=== PATIENT | male | born 1965 | race Caucasian/White ===

== ENCOUNTER 2017-01-03 20:53 | Emergency (ER) | payer OTHER ==
[~2017-01-03] VITALS: Ht 190.5 cm; Wt 86.2 kg
[~2017-01-03 20:53] MED LIST: CENTRUM COMPLE1 EACH PO; GINKGO BILOBA40 M1 PO; GINSENG100 MG PO; VITAMIN B122500 MCG PO; ZOLOFT50 MG PO
[2017-01-03] MEDS ORDERED: AMOX TR-K CLV1 EAC1 PO (21:10)
--- NOTE | 2017-01-05 08:17 | EKG ---
[facility] [address] [place] [place] [address] Signed Normal sinus rhythm with sinus arrhythmia Normal ECG No previous ECGs available Confirmed by BILLY HOROWITZ MD ([id number]) on 01/05/2017 8:17:15 AM Electronically Signed By: BILLY HOROWITZ MD 01/05/17 0817 PATIENT NAME: DEEPA CHAMBERLAIN PERRY Electrocardiogram DATE OF : 63 PHYSICIAN: BILLY HOROWITZ MD REPORT #: [id number] REPORT IS CONFIDENTIAL AND NOT TO BE RELEASED WITHOUT AUTHORIZATION
== END 2017-01-04 00:45 | disposition short-term general hospital (02) ==
LOC: ED 20:53
DX: I72.8 Aneurysm of other specified arteries (principal); Z79.899 Other long term (current) drug therapy
CPT/HCPCS: 71010; 71275; 72191; 80053; 81001; 83690; 84484; 85025; 93005; 93010; 96361; 96374; 96375; 99285; J1170; J2405; J7030; Q9967

== ENCOUNTER 2017-12-13 23:08 | Observation (INO) | payer OTHER ==
[~2017-12-13] VITALS: Ht 190.5 cm; Wt 83.1 kg
--- OUTSIDE RECORDS SUMMARY | ~2017-12-13 | XMS | Encounter Summary ---
Demographics + + + | Address | [address] | | | [place] [address] | + + + | Home Phone | | + + + | Preferred Language | Unknown | + + + | Marital Status | | + + + | Scientology Affiliation | CHR | + + + | Race | White | + + + | Ethnic Group | Not or | + + + Author + + + | Author | [facility] | + + + | Organization | [facility] | + + + | Address | Unknown | + + + | Phone | Unavailable | + + + Support + + +---------+ + | Name | Relationship | Address | Phone | + + +---------+ + | alejandrina garcia | ECON | Unknown | | + + +---------+ + Care Team Providers + +------+ + | Care Blower Installer Name | Role | Phone | + +------+ + | Donato Ahmadi DO | PCP | | + +------+ + Reason for Referral Diagnostic Testing (Routine) + +--------+ + + + + | Status | Reason | Specialty | Diagnoses / | Referred By | Referred To | | | | | Procedures | Contact | Contact | + +--------+ + + + + | New Request | | Radiology | Diagnoses | Zeferino | | | | | | Celiac | Marixa Carcamo MD | | | | | | artery | [address] | | | | | | aneurysm | [address] | | | | | | ([facility]) | [address] | | | | | | Procedures | [place], [place] | | | | | | [facility] | [address] | | | | | | MESENTERIC & | Phone: | | | | | | CELIAC | [phone] | | | | | | DUPLEX | Fax: | | | | | | | [phone] | | + +--------+ + + + + Diagnostic Testing (Routine) + +--------+ + + + + | Status | Reason | Specialty | Diagnoses / | Referred By | Referred To | | | | | Procedures | Contact | Contact | + +--------+ + + + + | New Request | | Radiology | Diagnoses | Zeferino | | | | | | Celiac | Marixa Carcamo MD | | | | | | artery | [address] | | | | | | aneurysm | [address] | | | | | | ([facility]) | [address] | | | | | | Procedures | [place], [place] | | | | | | [facility] | [address] | | | | | | MESENTERIC & | Phone: | | | | | | CELIAC | [phone] | | | | | | DUPLEX | Fax: | | | | | | | [phone] | | + +--------+ + + + + Reason for Visit Diagnostic Testing (Routine) + +--------+ + + + + | Status | Reason | Specialty | Diagnoses / | Referred By | Referred To | | | | | Procedures | Contact | Contact | + +--------+ + + + + | New Request | | Radiology | Diagnoses | Zeferino, | | | | | | Celiac | Marixa Carcamo MD | | | | | | artery | [address] | | | | | | aneurysm | [address] | | | | | | ([facility]) | [address] | | | | | | Procedures | [place], [place] | | | | | | [facility] | [address] | | | | | | MESENTERIC & | Phone: | | | | | | CELIAC | [phone] | | | | | | DUPLEX | Fax: | | | | | | | [phone] | | + +--------+ + + + + Encounter Details +--------+ + + + + | Date | Type | Department | Care Team | Description | +--------+ + + + + | 09/29/ | Hospital | Diagnostic Imaging | Toni Smith, | | | 2017 | Encounter | Services at [facility] | [address] | | | | | [address] | [address] | | | | | [place], | [place], [place] | | | | | [place] [address] | [address] | | | | | [phone] | [phone] | | | | | | | | +--------+ + + + + Social History + +-------+ +--------+------+ | Tobacco Use | Types | Packs/Day | Years | Date | | | | | Used | | + +-------+ +--------+------+ | Never Smoker | | | | | + +-------+ +--------+------+ + +---+---+---+ | Smokeless Tobacco: | | | | | Never Used | | | | + +---+---+---+ + + +---------+ + | Alcohol Use | Drinks/We | oz/Week | Comments | | | ek | | | + + +---------+ + | Yes | | | rare | + + +---------+ + + + + | Sex Assigned at | Date Recorded | | | | + + + | Not on file | | + + + as of this encounter Functional Status + + + + | Functional Status | Response | Date of Assessment | + + + + | Because of a physical, mental, or emotional | No | 01/04/2017 | | condition, do you have serious difficulty | | | | doing errands alone such as visiting the | | | | doctor? | | | + + + + + + + + | Cognitive Status | Response | Date of Assessment | + + + + | Because of a physical, mental, or emotional | No | 01/04/2017 | | condition, do you have serious difficulty | | | | concentrating, remembering, or making | | | | decisions? (5 years old or older) | | | + + + + as of this encounter Medications at Time of Discharge + + +--------+---------+ + + | Medication | Sig. | Disp. | Refills | Start | End Date | | | | | | Date | | + + +--------+---------+ + + | aspirin EC 81 mg | Take 1 tablet by | | | 01/11/20 | | | oral tablet,delayed | mouth once daily. | | | 17 | | | release (DR/EC) | | | | | | + + +--------+---------+ + + | atorvastatin 10 mg | Take 1 tablet by | 30 | 2 | 01/11/20 | | | oral tablet | mouth once daily. | tablet | | 17 | | + + +--------+---------+ + + | doxepin HCl | Take by mouth once | | | | | | (DOXEPIN ORAL) | daily at bedtime. | | | | | + + +--------+---------+ + + | metoprolol | Take 1 tablet by | 30 | 0 | 01/11/20 | | | succinate 25 mg oral | mouth once daily. | tablet | | 17 | | | tablet extended | | | | | | | release 24 hr | | | | | | + + +--------+---------+ + + | mometasone 0.1 % | Apply to affected | | | | | | topical cream | area two times | | | | | | | daily. Apply a thin | | | | | | | film to affected | | | | | | | area. | | | | | + + +--------+---------+ + + as of this encounter Plan of Treatment +--------+ + + + + | Date | Type | Specialty | Care Team | Description | +--------+ + + + + | 03/09/ | Appointment | Radiology | Jan Enriquez MD | | | 2018 | | | [address] | | | | | | [place], | | | | | | [place] [address] | | | | | | [phone] | | | | | | | | +--------+ + + + + | 03/09/ | Office | Vascular Surgery | Jan Enriquez MD | | | 2018 | Visit | | [address] | | | | | | [place], | | | | | | [place] [address] | | | | | | [phone] | | | | | | | | +--------+ + + + + as of this encounter Procedures + +--------+ + + + | Procedure Name | Priori | Date/Time | Associated Diagnosis | Comments | | | ty | | | | + +--------+ + + + | [facility]ASC LAB MESENTERIC | Routin | 09/29/2017 | Celiac artery | Results for this | | & CELIAC DUPLEX | e | 9:27 AM | aneurysm (HCC) | procedure are in the | | | | PDT | | results section. | + +--------+ + + + in this encounter Results [facility] MESENTERIC & CELIAC DUPLEX (09/29/2017 9:27 AM) + + + | Narrative | Performed At | + + + | Visceral: The duplex scanner was used to examine the aorta, celiac, | [facility] | | superior mesenteric, and inferior mesenteric arteries. The aorta has | RADIOLOGY [facility]ASC | | a flow velocity of 110 cm/s. The celiac artery has a flow velocity | [place] | | of 225 cm/s. There are flow velocities of 143 and 110 cm/s in the | | | splenic and hepatic arteries respectively. The celiac diameter is 1.3 | | | cm X 1.3 cm X 1.3 cm with a dissection flap in the celiac trunk. The | | | superior mesenteric artery has a flow velocity of 135 cm/s proximally, | | | 218 cm/s in mid artery and 103 cm/s distally. ?? The inferior | | | mesenteric artery has a peak flow velocity of 98 cm/s. | | | Conclusions: An abnormal examination. 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 A previously visualized dissection | | | flap in the splenic artery on an examination from 03/22/17 was not | | | visualized on today's examination. The superior mesenteric and | | | inferior mesenteric arteries are patent without significant stenosis. | | | I have personally reviewed the images and, if necessary, | | | edited the report. I agree with the report as now presented. | | + + + + + | Procedure Note | + + | Service Account, Gracie Res In Interface - 09/29/2017 2:18 PM PDT Visceral: The | | duplex scanner was used to examine the aorta, celiac, superior mesenteric, and inferior | | mesenteric arteries.The aorta has a flow velocity of 110 cm/s. The celiac artery has a | | flow velocity of 225 cm/s. There are flow velocities of 143 and 110 cm/s in the splenic | | and hepatic arteries respectively. The celiac diameter is 1.3 cm X 1.3 cm X 1.3 cm with | | a dissection flap in the celiac trunk.The superior mesenteric artery has a flow velocity | | of 135 cm/s proximally, 218 cm/s in mid artery and 103 cm/s distally. ??The inferior | | mesenteric artery has a peak flow velocity of 98 cm/s.Conclusions: An abnormal | | examination.There is 70-99% stenosis in the celiac artery with a dissection flap in the | | celiac artery and a celiac artery diameter of 1.3 cm. A previously visualized dissection | | flap in the splenic artery on an examination from 03/22/17 was not visualized on | | today's examination.The superior mesenteric and inferior mesenteric arteries are patent | | without significant stenosis.I have personally reviewed the images and, if necessary, | | edited the report. I agree with the report as now presented. | | | |I have personally reviewed the images and, if necessary, edited the report. I agree with t he report as now presented. | + + + +---------+ + + | Performing | Address | City/State/Zipcode | Phone Number | | Organization | | | | + +---------+ + + | [facility] | | | | | [facility] | | | | + +---------+ + + in this encounter Visit Diagnoses + + | Diagnosis | + + | Celiac artery aneurysm (HCC) | + + | Aneurysm of other visceral artery | + +"
--- OUTSIDE RECORDS SUMMARY | ~2017-12-13 | XMS | Clinical Summary ---
Demographics + + + | Address | [address] | | | [place] [address] | + + + | Home Phone | | + + + | Preferred Language | Unknown | + + + | Marital Status | | + + + | Lutheran Affiliation | 1013 | + + + | Race | Unknown | + + + | Ethnic Group | Unknown | + + + Author + + + | Author | [facility] | + + + | Organization | [facility] | + + + | Address | Unknown | + + + | Phone | Unavailable | + + + Support + + +---------+ + | Name | Relationship | Address | Phone | + + +---------+ + | Vicki Garcia | ECON | Unknown | | + + +---------+ + Care Team Providers + +------+ + | Care Black Leather Buffer Name | Role | Phone | + +------+ + | Donato Ahmadi DO | PP | | + +------+ + Allergies Not on File Current Medications Not on file Active Problems Not on file Social History + +-------+ +--------+------+ | Tobacco Use | Types | Packs/Day | Years | Date | | | | | Used | | + +-------+ +--------+------+ | Never Assessed | | | | | + +-------+ +--------+------+ + + + | Sex Assigned at | Date Recorded | | | | + + + | Not on file | | + + + Plan of Treatment Not on file Results Not on filefrom Last 3 Months Insurance + +--------+ +------+-------+---------+ | Payer | Benefi | Subscriber | Type | Phone | Address | | | t Plan | ID | | | | | | / | | | | | | | Group | | | | | + +--------+ +------+-------+---------+ | [employer] | [employer] | [id number] | | | | | | WORK | | | | | + +--------+ +------+-------+---------+ | [employer] | [employer] | [id number] | | | | | | WORK | | | | | + +--------+ +------+-------+---------+ + +--------+ +--------+ + + | Guarantor Name | Accoun | Relation to | Date | Phone | Billing Address | | | t Type | Patient | of | | | | | | | | | | + +--------+ +--------+ + + | DEEPA GARCIA | Person | Self | [birth year] | Home: | [address] | | | al/[place] | | 1965 | [phone] [place] [address] | | | sue | | | [phone] | | + +--------+ +--------+ + +"
--- OUTSIDE RECORDS SUMMARY | ~2017-12-13 | XMS | Clinical Summary ---
Demographics + + + | Address | [address] | | | [place] [address] | + + + | Home Phone | | + + + | Preferred Language | Unknown | + + + | Marital Status | | + + + | Lutheran Affiliation | 1013 | + + + | Race | Unknown | + + + | Ethnic Group | Unknown | + + + Author + + + | Author | [facility] | + + + | Organization | [facility] | + + + | Address | Unknown | + + + | Phone | Unavailable | + + + Support + + +---------+ + | Name | Relationship | Address | Phone | + + +---------+ + | Vicki Garcia | ECON | Unknown | | + + +---------+ + Care Team Providers + +------+ + | Care Pulp And Paper Tester Name | Role | Phone | + [...] +------+-------+---------+ | [employer] | [employer] | [id number] | | | | | | WORK | | | | | + +--------+ +------+-------+---------+ | [employer] | [employer] | [id number] | | | | | | WORK [...] Self | [birth year] | Home: | [address] | | | al/[place] | | 1965 | [phone] | [place] [address] | | | sue | | | [phone] | | + +--------+ +--------+ + +"
--- OUTSIDE RECORDS SUMMARY | ~2017-12-13 | XMS | Clinical Summary ---
Demographics + + + | Address | [address] | | | [place] [address] | + + + | Home Phone | | + + + | Preferred Language | Unknown | + + + | Marital Status | | + + + | Congregational Affiliation | 1013 | + + + | Race | Unknown | + + + | Ethnic Group | Unknown | + + + Author + + + | Author | [facility] | | | and [place] | + + + | Organization | [facility] | | | and [place] | + + + | Address | Unknown | + + + | Phone | Unavailable | + + + Support + + +---------+ + | Name | Relationship | Address | Phone | + + +---------+ + | Jeremie Garcia | ECON | Unknown | | + + +---------+ + Care Team Providers + +------+ + | Care School Librarian Name | Role | Phone | + +------+ + | Donato Ahmadi DO | PP | | + +------+ + Allergies No Known Allergies Current Medications No known medications Active Problems + + + | Problem | Noted Date | + + + | PALPITATIONS | | + + + Family History + + +------+ + | Medical History | Relation | Name | Comments | + + +------+ + | Arthritis | Father | | | + + +------+ + | Arthritis | Mother | | | + + +------+ + | Cancer | Mother | | | + + +------+ + + +------+ + + | Relation | Name | Status | Comments | + +------+ + + | Father | | Alive | | + +------+ + + | Maternal Aunt | | | Suicide | | | | (Age | | | | | 65) | | + +------+ + + | Maternal Grandfather | | | Cancer | | | | (Age | | | | | 87) | | + +------+ + + | Maternal Grandmother | | | Cancer | | | | (Age | | | | | 71) | | + +------+ + + | Mother | | Alive | | + +------+ + + | Paternal Grandmother | | | Cancer Gallbladder | | | | (Age | | | | | 80) | | + +------+ + + | Sister | | Alive | | + +------+ + + Social History + +-------+ +--------+------+ [...] + + +---------+ + | Yes | 0 | 0.0 | ocasional | | | Standard | | | | | drinks or | | | | | | | | | | equivalen | | | | | t | | | + + +---------+ + + + + | Sex Assigned at | Date Recorded | | | | + + + | Not on file | | + + + Last Filed Vital Signs + + + + | Vital Sign | Reading | Time Taken | + + + + | Blood Pressure | 117/73 | 03/20/2015 1505 PST | + + + + | Pulse | 59 | 03/20/2015 1505 PST | + + + + | Temperature | 36.7 C (98 F) | 07/03/2016 1302 PDT | + + + + | Respiratory Rate | 18 | 03/20/2015 1505 PST | + + + + | Oxygen Saturation | - | - | + + + + | Inhaled Oxygen | - | - | | Concentration | | | + + + + | Weight | 88.5 kg (195 lb) | 07/03/20161301 PDT | + + + + | Height | 188 cm (6' 2") | 07/03/20161301 PDT | + + + + | Body Mass Index | 25.04 | 07/03/20161301 PDT | + + + + Plan of Treatment + + + + + | Health Maintenance | Due Date | Last Done | Comments | + + + + + | Hepatitis C | | | | | Screening | 4 | | | + + + + + | Vaccine: | | | | | Dtap/Tdap/Td (1 - | 3 | | | | Tdap) | | | | + + + + + | Colorectal Cancer | | | | | Screening | 4 | | | | (Colonoscopy) | | | | + + + + + | Vaccine: Influenza | | | | | (#1) | 8 | | | + + + + + Results Not on filefrom Last 3 Months Insurance + +--------+ +------+ +---------+ | Payer | Benefi | Subscriber | Type | Phone | Address | | | t Plan | ID | | | | | | / | | | | | | | Group | | | | | + +--------+ +------+ +---------+ | [facility] | PHP | [id number] | PPO | [phone] | | PLAN | [place] | | | [phone] | | | [address] | | | | | | | [place] | | | | | + +--------+ +------+ +---------+ | [facility] | PHP | [id number] | PPO | [phone] | | PLAN | [place] | | | [phone] | | | | [address] | | | | | | | [place] | | | | | + +--------+ +------+ +---------+ + +--------+ +--------+ + + | Guarantor Name | Accoun | Relation to | Date | Phone | Billing Address | | | t Type | Patient | of | | | | | | | | | | + +--------+ +--------+ + + | DEEPA GARCIA | Person | Self | [birth year] | Home: | [address] | | | al/Fam | | 1965 | [phone] [place] [address] | | | sue | | | [address] | | + +--------+ +--------+ + +
--- OUTSIDE RECORDS SUMMARY | ~2017-12-13 | XMS | Encounter Summary ---
Demographics + + + | Address | [address] | | | [place] [address] | + + + | Home Phone | | + + + | Preferred Language | Unknown | + + + | Marital Status | | + + + | Baptist Affiliation | CHR | + + + | Race | White | + + + | Ethnic Group | Not or | + + + Author + + + | Author | [facility] | + + + | Organization | [facility] | + + + | Address | Unknown | + + + | Phone | Unavailable | + + + Support + + +---------+ + | Name | Relationship | Address | Phone | + + +---------+ + | alejandrina garcia | ECON | Unknown | | + + +---------+ + Care Team Providers + +------+ + | Care Mixed Animal Veterinarian Name | Role | Phone | + [...] [address] | | | | | | ([facility]) | [address] | | | | | | Procedures | [place], [place] | | | | | | [facility] | [address] | | | | | | MESENTERIC & | Phone: | | | | | | CELIAC | [phone] | | | | | | DUPLEX | Fax: | | | | | | | [phone] | | + +--------+ + + + [...] [address] | | | | | | ([facility]) | [address] | | | | | | Procedures | [place], [place] | | | | | | [facility] | [address] | | | | | | MESENTERIC & | Phone: | | | | | | CELIAC | [phone] | | | | | | DUPLEX | Fax: | | | | | | | [phone] | | + +--------+ + + + [...] [address] | | | | | | ([facility]) | [address] | | | | | | Procedures | [place], [place] | | | | | | [facility] | [address] | | | | | | MESENTERIC & | Phone: | | | | | | CELIAC | [phone] | | | | | | DUPLEX | Fax: | | | | | | | [phone] | | + +--------+ + + + + Encounter Details +--------+ + + + + | Date | Type | Department | Care Team | Description | +--------+ + + + + | 09/29/ | Hospital | Diagnostic Imaging | Toni Smith, | | | 2017 | Encounter | Services at [facility] | [address] | | | | | [address] | [address] | | | | | [place], | [place], [place] | | | | | [place] [address] | [address] | | | | | [phone] | [phone] | | | | | | | [...] | | | | | | [place] [address] | | | | | | [phone] | | | | | | | | +--------+ + + + + | 03/09/ | Office | Vascular Surgery | Jan Enriquez MD | | | 2018 | Visit | | [address] | | | | | | [place], | | | | | | [place] [address] | | | | | | [phone] | | | | | | | [...] + + + in this encounter Results [facility] MESENTERIC & CELIAC DUPLEX (09/29/2017 9:27 [...]
--- OUTSIDE RECORDS SUMMARY | ~2017-12-13 | XMS | Encounter Summary ---
Demographics + + + | Address | [address] | | | [place] [address] | + + + | Home Phone | | + + + | Preferred Language | Unknown | + + + | Marital Status | | + + + | Judaism Affiliation | CHR | + + + | Race | White | + + + | Ethnic Group | Not or | + + + Author + + + | Author | [facility] | + + + | Organization | [facility] | + + + | Address | Unknown | + + + | Phone | Unavailable | + + + Support + + +---------+ + | Name | Relationship | Address | Phone | + + +---------+ + | alejandrina garcia | ECON | Unknown | | + + +---------+ + Care Team Providers + +------+ + | Care Iron Cutter Name | Role | Phone | + [...] Zeferino | | | | | | Artery | Rosanna Carcamo, | | | | | | dissection | [address] | | | | | | ([facility]) | [address] | | | | | | Procedures | [address] [address] | | | | | | [facility] | [place], [place] | | | | | | MESENTERIC & | [address] | | | | | | CELIAC | Phone: | | | | | | DUPLEX | [phone] | | | | | | | Fax: | | | | | | | [phone] | | + +--------+ + + + + Reason for Visit + + + | Reason | Comments | + + + | Follow-up in | | | outpatient clinic | | + + + Consultation (Routine) + +--------+ + + + + | Status | Reason | Specialty | Diagnoses / | Referred By | Referred To | | | | | Procedures | Contact | Contact | + +--------+ + + + + | Authorized | | Vascular | | Non-[facility] | Vas Vasc | | | | Surgery | | Epic Dept | Surg Ppv | | | | | | | [address] | | | | | | | [address] | | | | | | | Road | | | | | | | Mailcode: | | | | | | | OP11 | | | | | | | Physicians | | | | | | | [place] | | | | | | | [place], [place] | | | | | | | [address] | | | | | | | Phone: | | | | | | | [phone] | | | | | | | Fax: | | | | | | | [phone] | + +--------+ + + + + Encounter Details +--------+---------+ + + + | Date | Type | Department | Care Team | Description | +--------+---------+ + + + | 09/29/ | Office | Vascular Surgery | Jan Yap MD | Artery dissection | | 2018 | Visit | at [facility] 2nd Floor | [address] | ([facility]) (Primary Dx) | | | | [address] | [address] [place], | | | | | [facility] | [place] [address] | | | | | Mailcode: OP11 | [phone] | | | | | [address] | | | | | | [place], [place] | | | | | | [address] | | | | | | [phone] | | | +--------+---------+ + + + Social History + +-------+ [...] + + + as of this encounter Last Filed Vital Signs + +---------+ + | Vital Sign | Reading | Time Taken | + +---------+ + | Blood Pressure | 120/67 | 09/29/2017 11:13 AM PDT | + +---------+ + | Pulse | 63 | 09/29/2017 11:13 AM PDT | + +---------+ + | Temperature | - | - | + +---------+ + | Respiratory Rate | - | - | + +---------+ + | Oxygen Saturation | 100% | 09/29/2017 11:13 AM PDT | + +---------+ + | Inhaled Oxygen | - | - | | Concentration | | | + +---------+ + | Weight | - | - | + +---------+ + | Height | - | - | + +---------+ + | Body Mass Index | - | - | + +---------+ + in this encounter Functional Status + + + [...] + + + as of this encounter Progress Jan Fowler MD - 09/29/2017 10:45 AM PDTVascular Surgery Attending Note Date of History and Physical Examination: September 29, 2017 I was present with the resident during the history and physical exam. I discussed the case with the resident and agree with the findings and plan as documented in the resident's note. JAN YAP MD VASCULAR SURGERY AT [facility] 2ND FLOOR [address] Mailcode: [address]11 [place] [address] Rosanna Mcgarry MD - 09/29/2017 10:45 AM PDTFormatting of this note may be different fr om the original. 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 Subjective: - Has been doing well; episodes of abdominal pain seem to be abating. No pain at all for la st several weeks. - Closely monitors BP at home. SBP usually 90-110s. Increases up to SBP 140s with stress. - Has been avoiding heavy lifting and closely monitoring lifestyle and activity. Has many c oncerns about how to minimize risk of worsening dissection. Objective: BP 120/67, Pulse 63, SpO2 100%. Physical Examination: General: No apparent distress. HEENT: Atraumatic, normocephalic. Pulmonary: Clear and no cough or difficulty breathing. Cardiac: Regular rate and rhythm. Mild heart murmur. Abdomen: Soft, non-tender, non-distended. No abdominal bruits. Extremities: Warm, well perfused. Neurological: Alert and oriented to person, place, time, and reason for evaluation. No obv ious cranial nerve deficits. Laboratory Data: Lab Results Component Value Date NA 137 01/10/2017 K 4.2 01/10/2017 CL 103 01/10/2017 BICARB 27 01/10/2017 BUN 16 01/10/2017 CR 0.9 02/15/2017 GLU 102 01/10/2017 CA 9.1 01/10/2017 Lab Results Component Value Date WBC 6.33 01/10/2017 HB 13.7 01/10/2017 HCT 39.2 01/10/2017 PLT 189 01/10/2017 MCV 88.5 01/10/2017 RDW 39.8 01/10/2017 Lab Results Component Value Date APTT 28.3 01/04/2017 FIBRINOGEN 362 01/04/2017 Imaging: (Vascular Labs, Ultrasound, Computed Tomography) [facility] MESENTERIC & CELIAC DUPLEX Order: [id number] Performed: 09/29/2017 09:27 Status: Preliminary result Visible to patient: No (Not Released) Dx: Celiac artery aneurysm (HCC) Details Reading Physician Reading Date Result Priority Toni Smith MD 09/29/2017 Narrative Visceral: The duplex scanner was used to examine the aorta, celiac, superior mesenteric, an d inferior mesenteric arteries. The aorta has a flow velocity of 110 cm/s. The celiac artery has a flow velocity of 225 cm/s. There are flow velocities of 143 and 110 cm/s in the splenic and hepatic arteries respectively. The celiac diameter is 1.3 cm X 1.3 cm X 1.3 cm with a dissection flap in the celiac trunk. The superior mesenteric artery has a flow velocity of 135 cm/s proximally, 218 cm/s in mid artery and 103 cm/s distally. ?? The inferior mesenteric artery has a peak flow velocity of 98 cm/s. Conclusions: An abnormal examination. There is 70-99% stenosis in the celiac artery with a dissection flap in the celiac artery a nd a celiac artery diameter of 1.3 cm. A previously visualized dissection flap in the spleni c artery on an examination from 03/22/17 was not visualized on today's examination. The superior mesenteric and inferior mesenteric arteries are patent without significant con nosis. 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 The splenic artery dissection flap has not been identified on surveil sejal ultrasound. The celiac artery dissection flap and diameter have decreased (from 1.6 cm to 1.3 cm) on today's surveillance ultrasound. His abdominal pain is improving. 1. Continue with current beta blockade targeting SBP 120 or less and DBP 80 or less. 2. OK to stop statin (cholesterol all within normal limits when check during 01/2017 hospit alization). 3. Counseled the patient at some length regarding making modifications for reasonable risk reduction in his life, but not at the expense of significantly affecting his mental health o r quality of life. OK for light weight lifting, regular work activity, playing with [employer], etc. 4. Return to clinic in 6 months with repeat abdominal duplex. Jan Yap MD is the attending surgeon and agrees with my assessment and plan. Rosanna Mcgarry MD General Surgery R4in this encounter Plan of Treatment +--------+ + + + + | Date | Type | Specialty | Care Team | Description | +--------+ + + + + | 03/09/ | Appointment | Radiology | Jan Yap MD | | | 2017 | | | [address] | | | | | | [place] | | | | | | [place] [address] | | | | | | [phone] | | | | | | | | +--------+ + + + + | 03/09/ | Office | Vascular Surgery | Jan Yap MD | | | 2017 | Visit | | [address] | | | | | | [place] | | | | | | [place] [address] | | | | | | [phone] | | | | | | | | +--------+ + + + + + +--------+ + + | Name | Priori | Associated Diagnoses | Order Schedule | | | ty | | | + +--------+ + + | VASC LAB MESENTERIC & CELIAC | Routin | Artery dissection | Expected: 03/31/2018 | | DUPLEX | e | (HCC) | (Approximate), | | | | | Expires: 09/29/2018 | + +--------+ + + as of this encounter Visit Diagnoses + + | Diagnosis | + + | Artery dissection (HCC) - Primary | + + | Dissection of other artery | + +"
--- OUTSIDE RECORDS SUMMARY | ~2017-12-13 | XMS | Clinical Summary ---
Demographics + + + | Address | [address] | | | [place] [address] | + + + | Home Phone | | + + + | Preferred Language | Unknown | + + + | Marital Status | | + + + | Buddhism Affiliation | CHR | + + + | Race | White | + + + | Ethnic Group | Not or | + + + Author + + + | Author | [facility] | + + + | Organization | [facility] | + + + | Address | Unknown | + + + | Phone | Unavailable | + + + Support + + +---------+ + | Name | Relationship | Address | Phone | + + +---------+ + | alejandrina garcia | ECON | Unknown | | + + +---------+ + Care Team Providers + +------+ + | Care Scrap Baler Name | Role | Phone | + +------+ + | Donato Ahmadi DO | PP | | + +------+ + Source Comments DANNY is fully live on both [facility] and [facility] In[facility] Allergies No Known Allergies Current Medications + + +--------+---------+------+------+-------+ | Prescription | Sig. | Disp. | Refills | Star | End | Statu | | | | | | t | Date | s | | | | | | Date | | | + + +--------+---------+------+------+-------+ | aspirin EC 81 mg | Take 1 tablet by | | | 10/0 | | Activ | | oral tablet,delayed | mouth once daily. | | | 8/20 | | e | | release (DR/EC) | | | | 17 | | | + + +--------+---------+------+------+-------+ | metoprolol | Take 1 tablet by | 30 | 0 | 10/0 | | Activ | | succinate 25 mg oral | mouth once daily. | tablet | | 8/20 | | e | | tablet extended | | | | 17 | | | | release 24 hr | | | | | | | + + +--------+---------+------+------+-------+ | atorvastatin 10 mg | Take 1 tablet by | 30 | 2 | 10/0 | | Activ | | oral tablet | mouth once daily. | tablet | | 8/20 | | e | | | | | | 17 | | | + + +--------+---------+------+------+-------+ | doxepin HCl | Take by mouth once | | | | | Activ | | (DOXEPIN ORAL) | daily at bedtime. | | | | | e | + + +--------+---------+------+------+-------+ | mometasone 0.1 % | Apply to affected | | | | | Activ | | topical cream | area two times | | | | | e | | | daily. Apply a thin | | | | | | | | film to affected | | | | | | | | area. 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 SIDCA possible, rheum consult pending | |- Repeat CTA today | |- KIRAN vs. 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 | + + Resolved Problems + + + + | Problem | Noted | Resolved | | | Date | Date | + + + + | Nausea & vomiting | 01/05/20 | | | | 17 | 7 | + + + + + + | Last Assessment & Plan: - rk brannon | | - currently denies | + + Encounters +--------+ + + + + | Date | Type | Specialty | Care Team | Description | +--------+ + + + + | 09/29/ | Office | | Jan Enriquez MD | Artery dissection | | 2017 | Visit | | | (HCC) (Primary Dx) | +--------+ + + + + | 09/29/ | Hospital | | Toni Smith, | | | 2018 | Encounter | | MD | | +--------+ + + + + from Last 3 Months Immunizations + + + + | Name | Dates Previously Given | Next Due | + + + + | Hib-PRP-T | 01/07/2017 | | + + + + | MCV4P | 01/07/2017 | | + + + + | PCV13 | 01/07/2017 | | + + + + Family History + + +------+ + | Medical History | Relation | Name | Comments | + + +------+ + | Heart Attack | Father | | | + + +------+ + | Breast Cancer | Mother | | | + + +------+ + | Cancer | Mother | | renal cell carcinoma | + + +------+ + + +------+--------+ + | Relation | Name | Status | Comments | + +------+--------+ + | Father | | | | + +------+--------+ + | Mother | | | | + +------+--------+ + Social History + +-------+ +--------+------+ | [...] + + + | Blood Pressure | 120/67 | 09/29/2017 11:13 AM PDT | + + + + | Pulse | 63 | 09/29/2017 11:13 AM PDT | + + + + | Temperature | 36.6 C (97.9 F) | 01/10/2017 11:33 AM PDT | + + + + | Respiratory Rate | 16 | 02/15/2017 12:15 PM PST | + + + + | Oxygen Saturation | 100% | 09/29/2017 11:13 AM PDT | + + + + | Inhaled Oxygen | - | - | | Concentration | | | + + + + | Weight | 79.9 kg (176 lb 3.2 | 06/09/2017 3:04 PM PST | | | oz) | | + + + + | Height | 188 cm (6' 2") | 02/15/2017 12:15 PM PST | + + + + | Body Mass Index | 22.62 | 06/09/2017 3:04 PM PST | + + + + Plan of Treatment +--------+ + + + + | Date | Type | Specialty | Care Team | Description | +--------+ + + + + | 03/09/ | Appointment | | Jan Enriquez MD | | | 2017 | | | [address] | | | | | | [place] | | | | | | [place] [address] | | | | | | [phone] | | | | | | | | +--------+ + + + + | 03/09/ | Office | | Jan Enriquez MD | | | 2017 | Visit | | [address] | | | | | | [place] | | | | | | [place] [address] | | | | | | [phone] | | | | | | | | +--------+ + + + + + + + + + | Health Maintenance | Due Date | Last Done | Comments | + + + + + | INFLUENZA VACCINE | | | | | (FLU SHOT) | 8 | | | + + + + + Procedures + +--------+ + + + | [...] section. | + +--------+ + + + from Last 3 Months Results [facility] MESENTERIC & CELIAC DUPLEX [...] Note | + + | Service Account, [employer] Res In Interface - 09/29/2017 2:18 PM [...] | | + +---------+ + + | [place] [facility] | | | | | [facility] US | | | | + +---------+ + + from Last 3 Months Insurance + +--------+ +------+ + + | Payer | Benefi | Subscriber | Type | Phone | Address | | | t Plan | ID | | | | | | / | | | | | | | Group | | | | | + +--------+ +------+ + + | [facility] | PHP | xxxxxxxxxxx | PPO | +- | [address] | | | [address] | | [address] | [place] [address] | | | [place] | | | | | | | [place] | | | | | + +--------+ +------+ + + | [facility] | PHP | [phone] | PPO | +- | [address] | | | [address] | | | [address] | [place] [address] | | | [place] | | | | | | | [place] | | | | | + +--------+ +------+ + + + +--------+ +--------+ + + | Guarantor Name | Accoun | Relation to | Date | Phone | Billing Address | | | t Type | Patient | of | | | | | | | | | | + +--------+ +--------+ + + | DEEPA GARCIA | Person | Self | [birth year] | Home: | [address] | | | al/Fam | | 1965 | [phone] | [place] [address] | | | sue | | | [address] | | + +--------+ +--------+ + +
--- OUTSIDE RECORDS SUMMARY | ~2017-12-13 | XMS | Clinical Summary ---
Demographics + + + | Address | [address] | | | [place] [address] | + + + | Home Phone | | + + + | Preferred Language | Unknown | + + + | Marital Status | | + + + | Episcopalian Affiliation | CHR | + + + [...] Team Providers + +------+ + | Care Animal Pathology Teacher Name | Role | Phone | + +------+ + | Donato Ahmadi DO | PP | | + +------+ + Source Comments DANNY is fully live on both [facility] Ambulatory and [facility] InPatient.[facility] Allergies No Known Allergies Current Medications + [...] | | | | | | [place] [address] | | | | | | [phone] | | | | | | | | +--------+ + + + + | 03/09/ | Office | | Jan Enriquez MD | | | 2017 | Visit | | [address] | | | | | | [place] | | | | | | [place] [address] | | | | | | [phone] | | | | | | | [...] + + from Last 3 Months Results [facility] MESENTERIC & CELIAC DUPLEX (09/29/2017 [...] Note | + + | Service Account, [employer] Res In Interface - 09/29/2017 2:18 PM [...] [place] [facility] | | | | | [facility] US | | | | + +---------+ [...] | [address] | | | [address] | [place] [address] | | | [place] | | | | | | | [place] | | | | | + +--------+ +------+ + + | [facility] | PHP | [phone] | PPO | +- | [address] | | | [address] | | | [address] | [place] [address] | | | [place] | | | [...] | 1965 | [phone] | [place] [address] | | | sue | | | [address] | | + +--------+ +--------+ + +
--- OUTSIDE RECORDS SUMMARY | ~2017-12-13 | XMS | Clinical Summary ---
Demographics + + + | Address | [address] | | | [place] [address] | + + + | Home Phone | | + + + | Preferred Language | Unknown | + + + | Marital Status | | + + + | Adventist Affiliation | 1013 | + + + | Race | Unknown | + + + | Ethnic Group | Unknown | + + + Author + + + | Author | [facility] | | | and [place] | + + + | Organization | [facility] | | | and [place] [...] Team Providers + +------+ + | Care Adult Health Clinical Nurse Specialist Name | Role | Phone | + [...] +---------+ | [facility] | PHP | [id number] | PPO | [phone] | | PLAN | [place] | | | [address] | | | | [place] | | | | | | | [place] | | | | | + +--------+ +------+ +---------+ | [facility] | PHP | [id number] | PPO | [phone] | | PLAN | [address] | [...] | | 1965 | [phone] | [place] [address] | | | use | | | [address] | | + +--------+ +--------+ + +
--- OUTSIDE RECORDS SUMMARY | ~2017-12-13 | XMS | Clinical Summary ---
Demographics + + + | Address | [address] | | | [place] [address] | + + + | Home Phone | | + + + | Preferred Language | Unknown | + + + | Marital Status | | + + + | Restorationist Affiliation | 1013 | + + + | Race | Unknown | + + + | Ethnic Group | Unknown | + + + Author + + + | Author | [facility] | + + + | Organization | [facility] | + + + | Address | Unknown | + + + | Phone | Unavailable | + + + Support + + +---------+ + | Name | Relationship | Address | Phone | + + +---------+ + | Vicki Garcia | ECON | Unknown | | + + +---------+ + Care Team Providers + +------+ + | Care Steam Presser Name | Role | Phone | + [...] +------+-------+---------+ | [employer] | [employer] | [id number] | | | | | | WORK | | | | | + +--------+ +------+-------+---------+ | [employer] | [employer] | [id number] | | | | | | WORK [...] Self | [birth year] | Home: | [address] | | | al/[place] | | 1965 | [phone] | [place] [address] | | | sue | | | [address] | | + +--------+ +--------+ + +"
--- OUTSIDE RECORDS SUMMARY | ~2017-12-13 | XMS | Encounter Summary ---
Demographics + + + | Address | [address] | | | [place] [address] | + + + | Home Phone | | + + + | Preferred Language | Unknown | + + + | Marital Status | | + + + | Sikh Affiliation | CHR | + + + | Race | White | + + + | Ethnic Group | Not or | + + + Author + + + | Author | [facility] | + + + | Organization | [facility] | + + + | Address | Unknown | + + + | Phone | Unavailable | + + + Support + + +---------+ + | Name | Relationship | Address | Phone | + + +---------+ + | alejandrina garcia | ECON | Unknown | | + + +---------+ + Care Team Providers + +------+ + | Care Head Mechanic Name | Role | Phone | + [...] | | | | | dissection | [address] | | | | | | ([facility]) | [address] | | | | | | Procedures | [place] | | | | | | [facility] | [place], [place] | | | | | | MESENTERIC & | [address] | | | | | | CELIAC | Phone: | | | | | | DUPLEX | [phone] | | | | | | | Fax: | | | | | | | [phone] | | + +--------+ + + + [...] | | | | | | | [place], [place] | | | | | | | [address] | | | | | | | Phone: | | | | | | | [phone] | | | | | | | Fax: | | | | | | | [phone] | + +--------+ + + + + Encounter Details +--------+---------+ + + + | Date | Type | Department | Care Team | Description | +--------+---------+ + + + | 09/29/ | Office | Vascular Surgery | Jan Yap MD | Artery dissection | | 2018 | Visit | at [facility] 2nd Floor | [address] | ([facility]) (Primary Dx) | | | | [address] | [place], | | | | | [facility] | [place] [address] | | | | | Mailcode: OP11 | [phone] | | | | | [address] | | | | | | [place], [place] | | | | | | [address] | | | | | | [phone] | | | +--------+---------+ + + + [...] note. JAN YAP MD VASCULAR SURGERY AT [facility] 2ND FLOOR [address] [facility] Mailcode: Op11 [place] [address] Rosanna Mcgarry MD - 09/29/2017 10:45 AM [...] 01/04/2017 Imaging: (Vascular Labs, Ultrasound, Computed Tomography) [facility] MESENTERIC & CELIAC DUPLEX Order: [id number] Performed: 09/29/2017 09:27 Status: Preliminary result Visible to patient: No (Not Released) Dx: Celiac artery aneurysm (HCC) Details Reading Physician Reading Date Result Priority Toin Smith MD 09/29/2017 Narrative Visceral: The duplex [...] weight lifting, regular work activity, playing with [employer], etc. 4. Return to clinic in 6 [...] | | | | | | [place] [address] | | | | | | [phone] | | | | | | | | +--------+ + + + + | 03/09/ | Office | Vascular Surgery | Jan Yap MD | | | 2017 | Visit | | [address] | | | | | | [place] | | | | | | [place] [address] | | | | | | [phone] | | | | | | | [...]
[~2017-12-13 23:08] MED LIST changes: +AMOX TR-K CLV1 EAC1 PO
[2017-12-13] MEDS ORDERED: LIPITOR10 MG PO (23:19)
[2017-12-13] MEDS ORDERED: METOPROLOL SUCC25 MG PO (23:20)
--- NOTE | 2017-12-14 03:00 | NUR ---
PT ADMITTED PER STRETCHER AT 0200. H 110-120'S WITH INC TO 1130 WITH STANDING TO VOID. STATES HE DOES FEEL HEART BEATING. STATES HE IS VERY ANXIOUS AND DOES LOOK SO. HE IS VERY WORRIED THAT THE A-FIB AND HIS HIGHER BLOOD PRESSURE WILL AFFECT HIS ANEURYSM THAT WAS FOUND LAST JAN. REASURED THAT THE A-FIB WILL NOT AFFECT IT AND THAT WE WILL MONITOR AND TX BLOOD PRESSURE NEEDED. DR HOROWITZ CALLED AT ABOUT 0225 RE ABOVE. PT GIVEN 25MG VISTARIL PO AND CARDIZEM GTT STARTED AT 5MG/HR. PT STATES HE HAS A HX OF NIGHT TERRORS AND CAN YELL OUT AND THINKS HE IS BEING INJURED, OR INTRUDERS ETC. GIVEN CALL LIGHT AND INFORMED TO CALL IF HE NEEDS TO GET UP. EXPRESSED UNDERSTANDING.
[2017-12-14] MEDS ORDERED: ASPIR 8181 MG PO (03:08)
[2017-12-14] MEDS ORDERED: BENEFIBER1 EAC1 PO (03:10)
--- NOTE | 2017-12-14 03:20 | NUR ---
NO CHANGE HR, CARDIZEM IN TO 10MG/HR. PT STATES HE FEELS LIKE HEART IS BEATING HARD IN HIS CHEST.
--- NOTE | 2017-12-14 04:22 | NUR ---
HR 90'S AT REST UP TO 108 WHEN STANDING TO VOID. STATES HAS DOZED SOME.
--- NOTE | 2017-12-14 05:36 | NUR ---
RESTING RESP REG EYES CLOSED. HR 80-90'S BP 93/65, CARDIZEM DEC TO 8MG/HR.
--- NOTE | 2017-12-14 05:55 | NUR ---
HR 70'S-90'S WITH OCC PAUSES UP TO 2 SECONDS. CARDIZEM DEC TO 5MG/HR.
--- NOTE | 2017-12-14 06:37 | NUR ---
FEWER PAUSES SINCE CARDIZEM TURNED TO 5MG/HR. HR 80'S 90'S. PT APEARS TO BE ASLEEP.
--- NOTE | 2017-12-14 07:30 | NUR ---
RC'D REPORT FROM HEAD OF STRATEGY NURSE. CALL LIGHT ANSWERED, PT REQUESTING TO USE BEDSIDE URINAL, HR NOTED TO INCREASE FROM 88 TO 100-110. PT RESTING BACK IN BED, HR LOW 90'S, DENIES SYMPTOMS, CARDIZEM INFUSING AT 5 ML/HR. PT STATES HE HAS HAD PALPATATION IN THE PAST AND MORE FREQUENTLY WITHIN THE LAST WEEK. PT ALSO STATES HE HAS ANXIETY AT BASELINE. PROVIDED EDUCATION ON AFIB AND CURRENT MEDICATION, ADDITIONAL EDUCATION TO BE GIVEN, FULL ASSESSMENT TO BE COMPLETED. BREAKFAST AT BEDSIDE.
--- NOTE | 2017-12-14 08:56 | EKG ---
[facility] [address] [place] [address] Signed Atrial fibrillation with rapid ventricular response Nonspecific ST abnormality Abnormal ECG When compared with ECG of 03-JAN-2017 21:16, Atrial fibrillation has replaced Sinus rhythm Confirmed by BILLY HOROWITZ MD ([id number]) on 12/14/2017 8:56:34 AM Electronically Signed By: BILLY HOROWITZ MD 12/14/17 0856 PATIENT NAME: DEEPA CHAMBERLAIN Electrocardiogram DATE OF : 63 PHYSICIAN: BILLY HOROWITZ MD REPORT #: [id number] REPORT IS CONFIDENTIAL AND NOT TO BE RELEASED WITHOUT AUTHORIZATION
--- NOTE | 2017-12-14 09:07 | NUR ---
DR. HOROWITZ AT BEDSIDE TO ASSESS PT AND UPDATE PLAN OF CARE.
--- NOTE | 2017-12-14 10:11 | NUR ---
PT RESTING IN BED VISITING WITH FAMILY. MEDICATION EDUCATION PROVIDED, ALL QUESTIONS ANSWERED, VERBALIZED UNDERSTANDING. BP 92/71, MAP 76, HR 100, RR 17. 50 MG METOPROLOL AND 40 MEQ OF POTASSIUM GIVEN. 500 ML LR BOLUS TO BE GIVEN. DENIES OTHER NEEDS NEEDS. PT VERBALIZED FRUSTRATION REGARDING RECENT HOSPITALIZATIONS, ADDITIONAL EDUCATION PROVIDED. CALL LIGHT WITHIN REACH. WILL CONTINUE TO MONITOR.
--- NOTE | 2017-12-14 10:39 | NUR ---
DILTIAZEM TITRATED FROM 5MG/HR TO 2.5MG/HR. LAST BP 97/65, MAP 73, HR 84. WILL CONTINUE TO MONITOR.
--- NOTE | 2017-12-14 11:05 | NUR ---
DILTIAZEM DRIP DC'D AT THIS TIME. VITAL SIGNED OBTAINED 10 MINS AFTER DRIP DC, BP 103/72, MAP 77, HR 90. WILL CONTINUE TO MONITOR.
--- NOTE | 2017-12-14 12:00 | NUR ---
PT IN BED COMPLETING ECHO, TECH ADVISED PT ASSISTED TO RESTROOM, HR 100-118, TOLERATED WELL, HR RETURNED TO 80-90'S ONCE BACK IN BED. PT DENIES PAIN, NAUSEA, LIGHTHEADEDNESS, OR DIZZINESS. PT STATES HE HAS PALPATIONS ON OCCASION. PT'S STATES MANY VISITORS MAY BE UP, ADVISED TO HAVE VISITORS RETURN LATER IN EVENING AND IN SMALLER GROUPS. REINFORCED AFIB EDUCATION, ADVISED TO REDUCE OVERSTIMULATION AND KEEP HR WITHIN GOAL RANGE, PT AND VERBALIZED UNDERSTANDING AND WERE AGREEABLE. DENIES OTHER NEEDS. CALL LIGHT WITHIN REACH. WILL CONTINUE TO MONITOR.
--- NOTE | 2017-12-14 12:41 | NUR ---
PT RESTING COMFORTABLY IN BED WITH EYES CLOSED. HR 80 AT THIS TIME. RESPIRATIONS EVEN AND UNLABORED, NO ACUTE DISTRESS NOTED. DO NOT DISTURB SIGN ON DOOR. WILL CONTINUE TO MONITOR.
--- NOTE | 2017-12-14 13:43 | NUR ---
VAL PRADO REQUESTED THAT I NOT DISTURB PT AT THIS TIME. SHE WANTS HIM TO REST UNDISTURBED MUCH POSSIBLE. WILL FOLLOW NEEDED. IS WITH PT
--- NOTE | 2017-12-14 13:57 | NUR ---
PT RESTING IN BED AT THIS TIME. LAST VITAL SIGNS OBTAINED, BP 102/66, HR 108, RR 15, SPO2 97% RA. ORDERED PT'S LUNCH. REINFORCED HR MANAGEMENT, VERBALIZED UNDERSTANDING. WILL CONTINUE TO MONITOR.
--- NOTE | 2017-12-14 14:21 | NUR ---
ADVISED FAMILY OF PLAN AND REINFORCED EDUCATION. PT'S FAMILY TO LET PT REST PRIOR TO WALK THIS EVENING. PT UP IN BED EATING LUNCH AT THIS TIME. WILL CONTINUE TO MONITOR.
[2017-12-14] MEDS ORDERED: MOMETASONE FURO45 GM TOP (14:30)
--- NOTE | 2017-12-14 15:41 | NUR ---
PT RESTING COMFORTABLY IN BED SLEEPING, NO ACUTE DISTRESS NOTED. HR VARYING FROM 70'S TO HIGH 90'S. WILL CONTINUE TO MONITOR.
--- NOTE | 2017-12-14 16:00 | NUR ---
PT SBA TO RESTROOM, PT PERFORMED ADLS INDEPENDENTLY, HR NOTED TO BE 90-115, TOLERATED WELL. PT AMBULATED 450 FEET IN HALLWAY, SBA, HR NOTED TO BE 90-110, TOLERATED WELL. PT DENIES LIGHTHEADNESS, DIZZINESS, OR PALPATIONS. PT STATES HE FEELS MORE SOB WITH INCEASED ACTIVITY BUT STATES TOLERABLE. PT ASSISTED BACK TO BED, SCDS ON, VITALS OBTAINED, BP 92/64, MAP 70, HR 96, O2 98% ON RA, RR 16. DENIES OTHER NEEDS AT THIS TIME. CALL LIGHT WITHIN REACH.
[2017-12-14] MEDS ORDERED: DOXEPIN HCL50 MG PO (16:58)
--- NOTE | 2017-12-14 17:04 | NUR ---
MED REC COMPLETE WITH [facility] REFILL HISTORY AND PATIENT INTERVIEW.
--- NOTE | 2017-12-14 18:43 | NUR ---
CARDIZEM GTT DC'D AROUND 1100, 50MG METOPROLOL GIVEN, AFIB CONTINUES, HR CONTINUES TO VARY FROM LOW 70 TO HIGH 120'S. PT'S HR NOTED TO INCREASE WITH STIMULATION, SUCH , VISITORS AND PROVIDING EDUCATION. REINFORCE HR CONTROL, LIMIT VISITATION NEEDED, PROVIDE INDEPTH EDUCATION TO HELP REDUCE ANXIETY. PT STATES HE HAS BASELINE ANXIETY FOLLOWING HOSPITALIZATION LAST YEAR, REPORTS NIGHT TERRORS AT BASELINE, CONTINUE TO MONITOR. PT TOLERATING REGULAR DIET. VOIDING QS. DENIES PAIN OR NAUSEA. PHERIPHERAL PULSES +2 BILATERALLY, SCDS, AMBULATE TOLERATED. PT AMBULATED 450 FEET THIS AFTERNOON, HR REMAINED BELOW 120, TOLERATED WELL. SALINE LOCKED.
--- NOTE | 2017-12-14 20:29 | NUR ---
PT CONVERTED TO SR AT 1906. HR 55-65 MAINLY BELOW 60. BP 90/66 MAP 71, DR HOROWITZ CALLED AND WILL HOLD EVENING LOPRESSOR. PT IS VERY HAPPY THAT HIS HR CONVERTED. WANTS TO HAVE TRIAL OF USING STAIRS BEFORE HE IS DISCHARGED HE HAS TO WALK UP STAIRS AT WORK. IS LESS ANXIOUS
--- NOTE | 2017-12-14 21:01 | NUR ---
ATE ICE CREAM SUNDAE WITH , UP TO BR TO VOID NOW READY FOR BED. HR TO 78 WHILE UP. 56 NOW AT REST.
--- NOTE | 2017-12-14 23:25 | NUR ---
HAS BEEN SLEEPING. HR 50'S.
--- NOTE | 2017-12-15 01:57 | NUR ---
SLEEPING WELL. REMIANS IN SINUS GERSON TO SR.
--- NOTE | 2017-12-15 04:12 | NUR ---
LE 0010 AWAKENED FOR ASSESSMENT. AMB TO BR TO VOID. NO DIZZYNESS, HR DID INC TO 70'S WITH AMBULATION. INFORMED PT THAT WOULD ALLOW HIM TO SLEEP AND TO CALL IF NEEDED ANYTHING.
--- NOTE | 2017-12-15 05:36 | NUR ---
AWAKENEDN FOR VS AND ASSESSMENT. PT STATES HE SLEPT PRETTY WELL. HAS REMAINED SINUS GERSON THROUGH NIGHT. DENIES NEED TO VOID.
--- NOTE | 2017-12-15 06:05 | NUR ---
HAS REMAIN IN SINUS BRADYCARDIA THROUGH SHIFT. HAS RESTED WELL.
--- NOTE | 2017-12-15 07:30 | NUR ---
PT SHIFT REPORT RECEIVED FROM DAY SHIFT RN. PT IS RESTING IN BED. PT CALL APPROPRIATELY PER REPORT PT HEART RHYTHM CONVERTED FROM A.FIB AND PT HAS SINCE BEEN IN NORMAL SINUS/SINUS GERSON RHYTHM. WILL CONTINUE TO CLOSELY MONITOR.
--- NOTE | 2017-12-15 08:08 | NUR ---
PT ASSESSMENT COMPELTED. PT IS UP TO BATHROOM TO REFRESH. PT DENIES ANY NEEDS. VITALS COMPLETED. BREAKFAST ORDERED. PT BREATH SOUNDS ARE CLEAR. BOWEL TONES ACTIVE. PT HR REMAINS IN SINUS RHYTHM AND SINUS GERSON AT TIME. PT DENIES ANY ISSUES OR NEEDS AT THIS TIME. WILL CONTINUE TO CLOSELY MONITOR.
[2017-12-15] MEDS ORDERED: METOPROLOL TART25 MG PO ×2 (09:15)
--- NOTE | 2017-12-15 09:30 | NUR ---
PER MD PT MAY DISCHARGE HOME AND FOLLOW-UP WITH WALKER MD IN 5-7 DAYS. PT IS AGREEABLE TO THIS PLAN. WILL ADMINISTER MEDICATIONS PRIOR TO DC PER ORDERS. WILL CONTINUE TO CLOSELY MONITOR.
--- NOTE | 2017-12-15 10:15 | NUR ---
PT EDUCATION REVIEWED WITH FAMILY AND PATIENT. SENT PT HOME WITH EDUCATION REGUARDING A. FIB. PT AND FAMILY REPEAT BACK INFORMATION PROVIDED. PT EDUCATED TO MONITOR HIS BP AND HR WITH NEW MEDICATION CHANGES. PHARMACY REVIEWED MEDICATIONS WITH PATIENT. PT BELONGINGS GATHERED. ANIL CHAVEZ'Sami IV SITE. ASSISTED PT TO GET DRESSED AND WHEELED PATIENT TO THE FRONT LOBBY. PT REMAINED IN SINUS RHYTHM TODAY WHILE ADMITTED IN THE CCU. EDUCATED TO MONITOR ACTIVITY TOLERANCE FIRST SEVERAL DAYS WHILE PTS MEDICATIONS ARE BEING CHANGED. PT DENIES ANY OTHER QUESTIONS AT THIS TIME. PT WILL FOLLOW-UP WITH HIS MD IN 5-7 DAYS.
== END 2017-12-15 10:15 | disposition home or self-care (01) ==
LOC: ED 23:08 → CCU 23:09 → ED 12-14 01:38 → CCU 12-14 01:38
PROVIDERS: ADMIT Internal Medicine
DX: I48.0 Paroxysmal atrial fibrillation (principal); F41.1 Generalized anxiety disorder; Z86.79 Personal history of other diseases of the circulatory system; Z79.82 Long term (current) use of aspirin; Z79.899 Other long term (current) drug therapy
CPT/HCPCS: 71046; 80053; 83735; 84443; 84484; 85025; 85610; 85730; 93005; 93010; 93306; 96374; 99285; G0378; J7120; Q0177

== ENCOUNTER 2021-01-05 08:34 | Emergency (ER) | payer OTHER ==
[~2021-01-05] VITALS: Ht 190.5 cm; Wt 83.4 kg
[~2021-01-05 08:34] MED LIST changes: +ASPIR 8181 MG PO; +BENEFIBER1 EAC1 PO; +DOXEPIN HCL50 MG PO; +LIPITOR10 MG PO; +METOPROLOL SUCC25 MG PO; +METOPROLOL TART25 MG PO; +MOMETASONE FURO45 GM TOP; +ZOLOFT25 MG PO
[2021-01-05] MEDS ORDERED: NASAL DECONGEST30 MG PO (09:41)
== END 2021-01-05 10:00 | disposition home or self-care (01) ==
LOC: ED 08:34
DX: U07.1 COVID-19 (principal); H69.80 Other specified disorders of Eustachian tube, unspecified ear; I48.91 Unspecified atrial fibrillation; Z79.899 Other long term (current) drug therapy
CPT/HCPCS: 71045; 99284-25; A9270; C9803; U0003

== ENCOUNTER 2021-05-01 07:30 | Day surgery (SDC) | payer OTHER ==
[~2021-05-01] VITALS: Ht 190.5 cm; Wt 79.0 kg
[~2021-05-01 07:30] MED LIST changes: +NASAL DECONGEST30 MG PO; +[UNRECOGNIZED DRUG - OTHER] PO
--- NOTE | 2021-05-01 10:25 | NUR ---
05/01/21 CELESTINE OZUNA 1017-PATIENT ARRIVES TO PACU ON 6L VIA MASK. PATIENT IS NONAROUSABLE TO TACTILE STIMULI. HOB ELEVATED. RN DOING JAW THRUST. 1022-PATIENT IS NONAROUSABLE TO PAINFUL STIMULI. RN DOING JAW THRUST. VSS. PATIENT ON 6L VIA MASK.
[2021-05-01] MEDS ORDERED: IBUPROFEN600 MG PO (10:45)
[2021-05-01] MEDS ORDERED: OXYCODON-ACETA1 EAC2 PO (10:45)
[2021-05-01] MEDS ORDERED: ACETAMINOPHEN500 MG PO (10:45)
--- NOTE | 2021-05-01 11:23 | OR ---
[facility] [address] [place], [place] [address] Signed DATE OF OPERATION: 05/01/2021 SURGEON: Marvin Novak MD PREOPERATIVE DIAGNOSIS: Right inguinal hernia. POSTOPERATIVE DIAGNOSIS: Right small indirect and large direct hernia (pantaloon type). PROCEDURES: 1. Repair of right inguinal hernia including excision and ligation of indirect sac and implantation of Prolene mesh underlay technique. 2. Excision of lipoma of the cord. ANESTHESIA: General LMA; Taniya Lal CRNA and local 10 mL of 0.25% Marcaine with epinephrine. INDICATION: This 56-year-old white man is known to me from the past. He has undergone a left inguinal hernia in the past elsewhere and had recurrence twice and I performed definitive repair in the past. He remains free of any hernia on the left side. He has now developed a right inguinal hernia. His underlying comorbidity does include episodic constipation. He has had colonoscopy which has shown no obstructing lesion. He is admitted at this time to undergo right inguinal hernia repair. He understands the risks of bleeding, infection, recurrence and so on. FINDINGS: A small indirect sac was noted as well as a rather large direct defect. The lipoma of the cord was noted as well. It was excised. Implantation of Prolene mesh was undertaken in an underlay technique without problem. An ilioinguinal nerve branch was identified and well preserved. The cord structures were normal. DESCRIPTION OF PROCEDURE: The patient was brought to the operating room, given a general LMA type anesthetic. Preoperative antibiotic Ancef was given. Sequential compression device stockings were used and heparin subcutaneously administered. The lower abdomen was clipped and prepared with a chlorhexidine solution and draped sterilely. A relatively small incision was made cephalad to the pubic tubercle on the right side along the line of skin tension relatively symmetric with his contralateral incision. Dissection was Electronically Signed By: MARVIN NOVAK MD 05/01/21 1123 PATIENT NAME: DEEPA CHAMBERLAIN OPERATIVE REPORT DATE OF : 63 REPORT #: [id number] PHYSICIAN: MARVIN NOVAK MD PCP: BILLY HOROWITZ MD REPORT IS CONFIDENTIAL AND NOT TO BE RELEASED WITHOUT AUTHORIZATION [facility] [address] [place], [place] [address] Signed carried through the subcutaneous tissue with electrocautery. The external oblique was incised along its fibers revealing the underlying cord. An ilioinguinal nerve branch was identified and dissected free from the external oblique fascia with sharp dissection and reflected around the external oblique medially. The cord was then mobilized from the floor with blunt and electrocautery dissection. The cord was encircled with a [place] drain. Quite obvious was a rather large direct hernia. Dissection in the cord did identify an indirect hernia sac which was relatively small. This was dissected free, opened and found to have no sign of incarcerated viscus or sliding component. The neck of the sac was secured with two separate interrupted 2-0 silk sutures and redundant hernia sac amputated and passed for pathology. A lipoma of the cord was dissected free laterally and excised and passed for pathology as well. An Allis clamp was applied to the tendon of the transversus abdominis and the attenuated fibers of the fascia of the transversalis were incised with electrocautery and using blunt dissection the properitoneal fat was free. A segment of Prolene mesh was cut to an elliptical configuration and secured in an underlay technique with interrupted 2-0 Prolene sutures. A defect was cut in the graft to accommodate the cord laterally. The mesh was secured laterally with all due care to avoid encumbrance of regional nerves. A 10 mL of 0.25% Marcaine was injected locally. The wound was irrigated and the cord replaced into the canal. The external and the ilioinguinal nerve replaced into the canal. The external oblique was reapproximated with running 2-0 Vicryl avoiding encumbrance of underlying structures. Ric layer was reapproximated with interrupted 2-0 Vicryl and a running subcuticular 3-0 Vicryl was used for the skin. Steri-Strips were applied as was an Acticoat dressing. The patient tolerated the procedure well. Blood loss was minimal. Complications were none. Marvin Novak MD /MODL /[id number] cc: Billy Horowitz MD Copies: BILLY HOROWITZ MD Electronically Signed By: MARVIN NOVAK MD 05/01/21 1123 PATIENT NAME: DEEPA CHAMBERLAIN OPERATIVE REPORT DATE OF : 63 REPORT #: [id number] PHYSICIAN: MARVIN NOVAK MD PCP: BILLY HOROWITZ MD REPORT IS CONFIDENTIAL AND NOT TO BE RELEASED WITHOUT AUTHORIZATION [address] [address] Signed ~ Electronically Signed By: MARVIN NOVAK MD 05/01/21 1123 PATIENT NAME: BULMARODEEPA AMADOR OPERATIVE REPORT DATE OF : 63 REPORT #: [id number] PHYSICIAN: MARVIN NOVAK MD PCP: BILLY HOROWITZ MD REPORT IS CONFIDENTIAL AND NOT TO BE RELEASED WITHOUT AUTHORIZATION
--- NOTE | 2021-05-01 11:45 | NUR ---
PT PROVIDED WITH SANDWICH AND SOUP. HE IS DAVID TO EAT AND DRINK WIHTOUT COMLICATION. C/O RIGHT UPPER LEG PAIN, REPOSITIONED WIHT PILLOW UNDER KNEE AND PT STATES THAT HIS LEG FELT BETTER.
--- NOTE | 2021-05-02 13:23 | PATH ---
[facility] [address] [facility] [place] [facility] [place] [place] [address] Signed SPECIMEN(S): A RIGHT INDIRECT INGUINAL HERNIA SAC SPECIMEN(S): B LIPOMA OF CORD SPECIMEN SOURCE: A. RIGHT INDIRECT INGUINAL HERNIA SAC B. LIPOMA OF CORD CLINICAL HISTORY: Right inguinal hernia repair. FINAL PATHOLOGIC DIAGNOSIS: A. Right indirect inguinal hernia sac, excision: - Mesothelial lined fibromembranous tissue, consistent with hernia sac. B. Cord lipoma, excision: - Lobulated mature fibroadipose tissue, consistent with lipoma. NAL:cml:C2NR MICROSCOPIC EXAMINATION: Histologic sections of all submitted blocks are examined by light microscopy. These findings, together with the gross examination, support the pathologic diagnosis. GROSS DESCRIPTION: Two specimens are received in two containers, labeled "DW." A. The specimen, labeled "DW, A," and designated on the requisition "right indirect inguinal hernia sac," is received in formalin and consists of pinto-violaceous, membranous adipose tissue fragment measuring 1.9 x 1.4 x 0.4 cm. Specimen is trisected and entirely submitted in cassette (A1). B. The specimen, labeled "DW, B," and designated on the requisition "lipoma of cord," is received in formalin and consists of lobulated adipose membranous tissue fragments measuring 4.3 x 2.4 x 1.3 cm in aggregate. Cut surface is homogenous and sales donor recruitment representative sections are submitted in cassette (B1). AT (under the direct supervision of a pathologist) The Gross Description was prepared using a voice recognition system. The report was reviewed for accuracy; however, sound-alike word errors, addition and/or deletions may occur. If there is any question about this report, please contact Client Services. PERFORMING LABORATORY: PATIENT NAME: DEEPA CHAMBERLAIN PATHOLOGY DATE OF : 63 REPORT #: [id number] PHYSICIAN: JEFERSON PATHOLOGY PCP: BILLY HOROWITZ MD REPORT IS CONFIDENTIAL AND NOT TO BE RELEASED WITHOUT AUTHORIZATION [facility] [address] [place] [address] Signed The technical component was performed by [facility] [place] [address] (Airplane Tester: Nohemi Trammell MD; CLIA# [id number]).Professional interpretation [facility], [address] [address] (CLIA# [id number]). Diagnostician: Zainab Farfan MD Pathologist Electronically Signed 05/02/2021 Copies: ~ PATIENT NAME: DEEPA CHAMBERLAIN PATHOLOGY DATE OF : 63 REPORT #: [id number] PHYSICIAN: JEFERSON PATHOLOGY PCP: BILLY HOROWITZ MD REPORT IS CONFIDENTIAL AND NOT TO BE RELEASED WITHOUT AUTHORIZATION
== END 2021-05-01 13:10 | disposition home or self-care (01) ==
LOC: DS 07:30
PROVIDERS: ATTEND Surgery
PROC: 0YU50JZ Supplement Right Inguinal Region with Synthetic Substitute, Open Approach (ICD-10-PCS; principal; 2021-05-01 08:15)
DX: K40.90 Unilateral inguinal hernia, without obstruction or gangrene, not specified as recurrent (principal); D17.6 Benign lipomatous neoplasm of spermatic cord; K59.09 Other constipation; F41.9 Anxiety disorder, unspecified; Z98.890 Other specified postprocedural states
CPT/HCPCS: 00830; A9270; C1781; J0690; J1100; J1644; J1885; J2001; J2250; J2405; J2704; J7121

== ENCOUNTER 2021-09-11 06:50 | Day surgery (SDC) | payer OTHER ==
[~2021-09-11] VITALS: Ht 188 cm; Wt 78.0 kg
[~2021-09-11 06:50] MED LIST changes: +ACETAMINOPHEN500 MG PO; +IBUPROFEN600 MG PO; +OXYCODON-ACETA1 EAC2 PO; +VITAMIN C250 MG PO; +VITAMIN D325 MC2 PO
--- NOTE | 2021-09-11 11:02 | NUR ---
09/11/21 1102 [place] 1028 PT ARRIVED TO PACU ON 6L VIA MASK, PT ASLEEP AND RESP EVEN AND UNLABORED. VSS. 1035 O2 REMOVED AND PT WAKES TO TACTILE STIMULI. 1042 MD AT BEDSIDE AND TALKING TO PT. PT VERY DROWSY AND EASILY FALLS BACK TO SLEEP.
--- NOTE | 2021-09-11 11:06 | NUR ---
PT ALERT, ORIENTED AND SUPPORTED BY FAMILY PRESENT. PT HAS HAD PREVIOUS SCOPES MENTIONED HE IS READY TO EAT. ALL QUESTIONS ASKED ANSWERED, SLIGHT DELAY IN DUE TO LONGER PROCEDURES. PT SEEMS TO BE COPING WELL. PT REQUESTED PRAYER, WILL FOLLOW NEEDED
--- NOTE | 2021-09-11 14:38 | OR ---
[facility] [address] [place], [place] [address] Signed DATE OF OPERATION: 09/11/2021 SURGEON: Marvin Novak MD PREOPERATIVE DIAGNOSIS: History of colon polyp 2019 sigmoid colon. POSTOPERATIVE DIAGNOSIS: Normal-appearing colon. No evidence of polyps. PROCEDURE: Total colonoscopy to cecum. ANESTHESIA: Intravenous sedation, propofol infusion, Bautista Wallace CRNA INDICATIONS: This 56-year-old white man is patient of Dr. Tiffany Altamirano, who underwent colonoscopy by me in 2018, at which time he was found to have a polyp in the sigmoid colon. He also has undergone right inguinal hernia repair by me in September of 2021. He is doing well in that regard. He is now admitted to undergo surveillance colonoscopy understand the risks of bleeding, infection, perforation findings the prep was excellent. Complete colonoscopy was undertaken to the cecum without question. He had no evidence of polyps, diverticular formation, colitis, or cancer. There appeared to be finding suggestive of prior endoscopic tattoo in the right colon, though that is not certain. DESCRIPTION OF PROCEDURE: The patient was brought to the surgical endoscopy suite and placed in lateral decubitus position. Initial administration of propofol to the right wrist area resulted in some infiltration of propofol. IV was found to be dysfunctional and it was changed. Sedation was then undertaken after applying a cold pack to the operative site where the was. Infusion of the propofol was quite effective in providing good sedation. Digital examination was normal. Olympus video colonoscope was passed in the rectum and manipulated throughout the colon ultimately intubating the cecum itself. The ileocecal valve and appendiceal orifice were normal. The scope was withdrawn from that point. Examination throughout showed no sign of abnormality specifically no polyps, diverticular formation, colitis or cancer. Retroflexed view was normal as well. The scope was removed. The patient was taken to recovery room in good condition. Electronically Signed By: MARVIN NOVAK MD 09/11/21 1438 PATIENT NAME: DEEPA CHAMBERLAIN OPERATIVE REPORT DATE OF : 63 REPORT #: [id number] PHYSICIAN: MARVIN NOVAK MD PCP: TIFFANY ALTAMIRANO MD REPORT IS CONFIDENTIAL AND NOT TO BE RELEASED WITHOUT AUTHORIZATION [address], [place] [address] Signed CONCLUDING DIAGNOSIS: Normal colon. PLAN: I would recommend repeat colonoscopy in 5 to 7 years based on prior history of polyps, sooner if clinical symptoms should occur. MD TUAN Sim/TRACEYL /[id number] cc: Tiffany Altamirano MD Copies: TIFFANY ALTAMIRANO DMD ~ Electronically Signed By: MARVIN NOVAK MD 09/11/21 1438 PATIENT NAME: DEEPA CHAMBERLAIN OPERATIVE REPORT DATE OF : 63 REPORT #: [id number] PHYSICIAN: MARVIN NOVAK MD PCP: TIFFANY ALTAMIRANO MD REPORT IS CONFIDENTIAL AND NOT TO BE RELEASED WITHOUT AUTHORIZATION
--- NOTE | 2021-09-13 14:46 | EKG ---
[facility] [address] [place] [address] Signed Normal sinus rhythm Normal ECG When compared with ECG of 13-SEP-2018 05:52, No significant change was found Confirmed by BILLY HOROWITZ MD ([id number]) on 09/13/2021 2:46:42 PM Electronically Signed By: BILLY HOROWITZ MD 09/13/21 1446 PATIENT NAME: DEEPA CHAMBERLAIN Electrocardiogram DATE OF : 63 PHYSICIAN: BILLY HOROWITZ MD REPORT #: [id number] REPORT IS CONFIDENTIAL AND NOT TO BE RELEASED WITHOUT AUTHORIZATION
== END 2021-09-11 11:46 | disposition home or self-care (01) ==
LOC: OPS 06:50 → DS 06:50 → OPS 08:15 → DS 10:00 → OPS 10:00 → DS 11:30 → OPS 11:46
PROVIDERS: ATTEND Surgery
PROC: 0DJD8ZZ Inspection of Lower Intestinal Tract, Via Natural or Artificial Opening Endoscopic (ICD-10-PCS; principal; 2021-09-11 09:30)
DX: Z12.11 Encounter for screening for malignant neoplasm of colon (principal); Z86.010 Personal history of colon polyps; F41.9 Anxiety disorder, unspecified; M51.9 Unspecified thoracic, thoracolumbar and lumbosacral intervertebral disc disorder; I77.70 Dissection of unspecified artery; Z79.82 Long term (current) use of aspirin
CPT/HCPCS: 93005; 93010; J2001; J2704; J7121

== ENCOUNTER 2023-05-16 07:47 | Emergency (ER) | payer OTHER ==
[~2023-05-16] VITALS: Ht 188 cm; Wt 79.7 kg
[2023-05-16] MEDS ORDERED: CARBIDOPA-LEVO1 EAC1 PO (08:01)
[2023-05-16] MEDS ORDERED: RASAGILINE MESYL1 MG PO (08:02)
[2023-05-16] MEDS ORDERED: METOPROLOL SUCC25 MG PO (08:53)
== END 2023-05-16 09:00 | disposition home or self-care (01) ==
LOC: ED 07:47
DX: I10 Essential (primary) hypertension (principal); I48.91 Unspecified atrial fibrillation; G20.A1 Parkinson's disease without dyskinesia, without mention of fluctuations; Z79.899 Other long term (current) drug therapy; Z79.82 Long term (current) use of aspirin
CPT/HCPCS: 99283

== ENCOUNTER 2024-01-16 08:31 | Emergency (ER) | payer OTHER ==
[~2024-01-16] VITALS: Ht 188 cm; Wt 78.9 kg
[~2024-01-16 08:31] MED LIST changes: +CARBIDOPA-LEVO1 EAC1 PO; +RASAGILINE MESYL1 MG PO
[2024-01-16] MEDS ORDERED: LOSARTAN POTASS25 MG PO (08:46)
[2024-01-16] MEDS ORDERED: AMANTADINE100 M1 PO (08:46)
[2024-01-16] MEDS ORDERED: MIRTAZAPINE15 MG PO (08:46)
[2024-01-16] MEDS ORDERED: ondansetron HCL 4 MG/2 ML VIAL IV ONE (09:00)
[2024-01-16] MEDS ORDERED: diazePAM 10 MG/2 ML SYR IV ONE (09:00)
[2024-01-16] MEDS ORDERED: HYDROmorphone HCL 1 MG/ML SYR IV ONE (09:00)
[2024-01-16] MEDS ORDERED: LIDOCAINE HCL 4% 1 EACH PATCH TD ONE (09:00)
[2024-01-16] MEDS ORDERED: CYCLOBENZAPRINE10 MG PO (10:46)
[2024-01-16] MEDS ORDERED: LIDODERM1 EACH TOP (10:46)
[2024-01-16 10:52] VITALS: BP 146/94
[2024-01-16] MEDS ORDERED: LIDOCAINE PATCH REMOVAL 1 EA TD SCH (21:00)
== END 2024-01-16 10:52 | disposition home or self-care (01) ==
LOC: ED 08:31
DX: M51.362 Other intervertebral disc degeneration, lumbar region with discogenic back pain and lower extremity pain (principal); G20.A1 Parkinson's disease without dyskinesia, without mention of fluctuations; I48.91 Unspecified atrial fibrillation; Z79.82 Long term (current) use of aspirin; Z79.899 Other long term (current) drug therapy
CPT/HCPCS: 72100; 99283; A9270